=== PATIENT | female | born 1995 | race Caucasian/White ===

== ENCOUNTER 2018-09-17 19:24 | Emergency (ER) | payer BC, MEDICAID ==
[~2018-09-17] VITALS: Ht 167.6 cm; Wt 104.0 kg
[~2018-09-17 19:24] MED LIST: IBUP-1982 PO
[2018-09-17 20:03] VITALS: BP 154/89; PULSE 118; RESP 18; Ht 167.6 cm; Wt 104.0 kg
[2018-09-17] MEDS ORDERED: NAPR-985 PO (23:28)
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
== END 2018-09-18 00:08 | disposition home or self-care (01) ==
LOC: FTE 19:24
DX: M25.512 Pain in left shoulder (principal)
CPT/HCPCS: 99283